=== PATIENT | female | born 1945 | race Hispanic/Latino ===

== ENCOUNTER 2018-03-15 21:29 | Emergency (ER) | payer OTHER ==
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
[2018-03-16 04:36] VITALS: BP 186/88
[2018-03-16] MEDS ORDERED: ULTRAM PO ONE (04:58)
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
== END 2018-03-16 05:14 | disposition home or self-care (01) ==
LOC: ED 21:29
DX: S16.1XXA Strain of muscle, fascia and tendon at neck level, initial encounter (principal); S39.012A Strain of muscle, fascia and tendon of lower back, initial encounter; M25.512 Pain in left shoulder; I10 Essential (primary) hypertension; V87.7XXA Person injured in collision between other specified motor vehicles (traffic), initial encounter; Y93.89 Activity, other specified; Y92.488 Other paved roadways as the place of occurrence of the external cause; Y99.8 Other external cause status
CPT/HCPCS: 70450; 72040; 99284